=== PATIENT | female | born 1975 | race Caucasian/White ===

== ENCOUNTER 2017-08-27 09:26 | Emergency (ER) | payer MEDICAID ==
[~2017-08-27] VITALS: Ht 154.9 cm; Wt 93.0 kg
[~2017-08-27 09:26] MED LIST: FLEXERIL PO; GLUMETZA500; MACROBID 100 M100 M1 PO; NORCO 5-325 TA1 EACH PO
[2017-08-27 10:27] LABS: ABSOLUTE BASOPHILS 0.1 thou/uL (0.0-0.2); ABSOLUTE EOSINOPHILS 0.1 thou/uL (0.0-0.7); ABSOLUTE LYMPHOCYTES 1.4 thou/uL (0.8-5.3); ABSOLUTE MONOCYTES 0.4 thou/uL (0.0-1.2); BASOPHILS 1.3 %; EOSINOPHILS 1.8 %; HEMATOCRIT 35.8 % (37.0-47.0); HEMOGLOBIN 11.8 gm/dL (12.0-15.0); LYMPHOCYTES 20.3 %; MCH 28.7 pg (26.0-34.0); MCHC 33.1 g/dL (28.0-37.0); MCV 86.8 fL (80.0-100.0); MONOCYTES 5.7 %; MPV 10.1 fl. (7.2-11.1); NUCLEATED RBCS 0 /100WBC; PLATELET COUNT* 214 thou/uL (150-400); POLYS 70.9 %; RBC 4.12 mil/uL (4.20-5.00); RDW-CV 13.5 % (10.5-14.5)
[2017-08-27 10:34] LABS: CALCIUM 8.3 mg/dL (8.5-10.1); CREATININE 0.9 mg/dL (0.6-1.3); POTASSIUM 3.7 mmol/L (3.5-5.1)
[2017-08-27 10:44] LABS: ALBUMIN 3.3 g/dL (3.4-5.0); INFLUENZA A ANTIGEN None Detected (None Detect); INFLUENZA B ANTIGEN None Detected (None Detect); TOTAL BILIRUBIN 0.2 mg/dL (<0.1-1.0)
[2017-08-27 11:10] LABS: URINE BILIRUBIN NEGATIVE (Negative); URINE BLOOD TRACE (Negative); URINE CLARITY CLEAR; URINE COLOR YELLOW; URINE GLUCOSE-RANDOM NEGATIVE (Negative); URINE KETONES NEGATIVE (Negative); URINE LEUKOCYTES-REFLEX NEGATIVE (Negative); URINE NITRITE-REFLEX NEGATIVE (Negative); URINE PROTEIN NEGATIVE (Negative); URINE SPECIFIC GRAVITY 1.025 (1.005-1.030); URINE UROBILINOGEN 0.2 E.U./dl (0.2-1.0)
[2017-08-27] MEDS ORDERED: MEDROLDOSEPACK PO (11:42)
[2017-08-27] MEDS ORDERED: IBUPROFEN 800800 M1 PO (11:42)
[2017-08-27] MEDS ORDERED: PROMETH-CODEIN 65 ML PO (11:42)
[2017-08-27 11:52] VITALS: BP 111/63
== END 2017-08-27 11:53 | disposition home or self-care (01) ==
LOC: M.ERS 09:26
PROVIDERS: Personal Emergency Response Attendant
DX: J40 Bronchitis, not specified as acute or chronic (principal); E11.9 Type 2 diabetes mellitus without complications; Z98.890 Other specified postprocedural states

== ENCOUNTER 2017-10-06 16:47 | Emergency (ER) | payer MEDICAID ==
[~2017-10-06] VITALS: Ht 154.9 cm; Wt 88.9 kg
[~2017-10-06 16:47] MED LIST changes: +IBUPROFEN 800800 M1 PO; +MEDROLDOSEPACK PO; +PROMETH-CODEIN 65 ML PO
[2017-10-06] MEDS ORDERED: HYDROCODON-ACE1 EAC7 PO (17:59)
[2017-10-06 18:11] VITALS: BP 135/72
== END 2017-10-06 18:12 | disposition home or self-care (01) ==
LOC: M.ERS 16:47
DX: S80.12XA Contusion of left lower leg, initial encounter (principal); E11.9 Type 2 diabetes mellitus without complications; Z90.49 Acquired absence of other specified parts of digestive tract; Z98.890 Other specified postprocedural states; W00.0XXA Fall on same level due to ice and snow, initial encounter; Y93.89 Activity, other specified; Y92.89 Other specified places as the place of occurrence of the external cause; Y99.8 Other external cause status

== ENCOUNTER 2018-04-16 23:49 | Emergency (ER) | payer OTHER ==
[~2018-04-16] VITALS: Ht 154.9 cm; Wt 95.3 kg
[~2018-04-16 23:49] MED LIST changes: +HYDROCODON-ACE1 EAC7 PO
[2018-04-17 00:06] LABS: URINE BILIRUBIN NEGATIVE (Negative); URINE BLOOD 3+ (Negative); URINE CLARITY CLEAR; URINE COLOR YELLOW; URINE GLUCOSE-RANDOM NEGATIVE (Negative); URINE KETONES NEGATIVE (Negative); URINE NITRITE-REFLEX NEGATIVE (Negative); URINE PROTEIN TRACE (Negative); URINE UROBILINOGEN 0.2 E.U./dl (0.2-1.0)
[2018-04-17 00:07] LABS: URINE LEUKOCYTES-REFLEX 2+ (Negative)
[2018-04-17 00:09] LABS: BACTERIA-REFLEX >30 Many /HPF (None Seen); CASTS None Seen /LPF (None Seen); CRYSTALS None Seen /LPF (None Seen); MUCUS 0-3 Light strn/LPF (None Seen); SQUAMOUS 0-3 Few /LPF (0-3); URINE RBC >20 Many /HPF (0-2); URINE WBC-REFLEX >25 Many /HPF (0-5); WBC CLUMPS Few (None Seen)
[2018-04-17 00:26] LABS: HEMATOCRIT 35.6 % (37.0-47.0); HEMOGLOBIN 11.6 gm/dL (12.0-15.0); MCH 28.2 pg (26.0-34.0); MCHC 32.7 g/dL (28.0-37.0); MCV 86.3 fL (80.0-100.0); MPV 9.5 fl. (7.2-11.1); NUCLEATED RBCS 0 /100WBC; PLATELET COUNT* 264 thou/uL (150-400); RBC 4.13 mil/uL (4.20-5.00); RDW-CV 13.1 % (10.5-14.5); WBC 7.3 thou/uL (4.0-11.0)
[2018-04-17] MEDS ORDERED: PYRIDIUM200 MG PO (00:27)
[2018-04-17] MEDS ORDERED: ULTRAM 50MG TAB50 MG PO (00:27)
[2018-04-17] MEDS ORDERED: CIPRO500 M1 PO (00:27)
[2018-04-17 00:35] LABS: ABSOLUTE NEUTROPHILS 4.2 thou/uL (1.6-8.1); POLYS 57.9 %
[2018-04-17 00:36] LABS: ABSOLUTE EOSINOPHILS 0.2 thou/uL (0.0-0.7); ABSOLUTE LYMPHOCYTES 2.4 thou/uL (0.8-5.3); ABSOLUTE MONOCYTES 0.5 thou/uL (0.0-1.2); BASOPHILS 0.3 %; EOSINOPHILS 2.1 %; LYMPHOCYTES 32.2 %; MONOCYTES 7.5 %
[2018-04-17 00:52] VITALS: BP 123/70
== END 2018-04-17 00:54 | disposition home or self-care (01) ==
LOC: M.ERS 23:49
PROVIDERS: Nurse Practitioner
DX: N39.0 Urinary tract infection, site not specified (principal); E11.9 Type 2 diabetes mellitus without complications; F17.210 Nicotine dependence, cigarettes, uncomplicated; Z90.49 Acquired absence of other specified parts of digestive tract

== ENCOUNTER 2018-05-31 14:59 | Emergency (ER) | payer BC ==
[~2018-05-31] VITALS: Ht 157.5 cm; Wt 95.3 kg
[~2018-05-31 14:59] MED LIST changes: +CIPRO500 M1 PO; +PYRIDIUM200 MG PO; +ULTRAM 50MG TAB50 MG PO
[2018-05-31] MEDS ORDERED: FLEXERIL PO (16:15)
[2018-05-31] MEDS ORDERED: MEDROLDOSEPACK PO (16:15)
[2018-05-31 16:28] VITALS: BP 122/70
--- NOTE | 2018-06-01 11:55 | EKG ---
[place] [address] ELECTROCARDIOGRAM REPORT Name: JUAN FENG Room: [facility]#: [id number] Admission: 05/31/18 Attend Phys: Discharge: 05/31/18 Date of : 79 Report #: [id number] THIS REPORT FOR: //name// [facility] ED Test Date: 2018-05-31 Test Time: 16:07:18 Pat Name: JUAN FENG Department: Room: Gender: F [employer] Estimator: Peggy RAJAN : 1975 Requested By: Elida Cantor Order Number: [id number] MD: Walter Vaca Measurements Intervals [place] Rate: 68 P: 37 NH: 164 QRS: 17 QRSD: 98 T: 8 QT: 398 QTc: 424 Interpretive Statements Sinus rhythm Probable left atrial enlargement Compared to ECG 01/05/2011 22:29:46 Poor R-wave progression no longer present Electronically Signed On 06-01-2018 11:55:15 CDT by Walter Vaca [email or web address] <ELECTRONICALLY SIGNED> By: Walter Vaca MD, [facility] 06/01/18 1155 1607 160 Walter Vaca MD, [facility] /EPI
== END 2018-05-31 16:29 | disposition home or self-care (01) ==
LOC: M.ERS 14:59
DX: M54.12 Radiculopathy, cervical region (principal); M25.512 Pain in left shoulder; E11.9 Type 2 diabetes mellitus without complications; F17.210 Nicotine dependence, cigarettes, uncomplicated; Z90.49 Acquired absence of other specified parts of digestive tract; Z98.890 Other specified postprocedural states

== ENCOUNTER 2018-09-23 10:05 | Emergency (ER) | payer BC ==
[~2018-09-23] VITALS: Ht 162.6 cm; Wt 99.8 kg
[2018-09-23 10:41] LABS: URINE BILIRUBIN NEGATIVE (Negative); URINE BLOOD 3+ (Negative); URINE CLARITY CLEAR; URINE COLOR YELLOW; URINE GLUCOSE-RANDOM NEGATIVE (Negative); URINE KETONES NEGATIVE (Negative); URINE LEUKOCYTES-REFLEX NEGATIVE (Negative); URINE NITRITE-REFLEX NEGATIVE (Negative); URINE PROTEIN 2+ (Negative); URINE SPECIFIC GRAVITY >= 1.030 (1.005-1.030); URINE UROBILINOGEN 0.2 E.U./dl (0.2-1.0)
[2018-09-23 10:45] LABS: BACTERIA-REFLEX 1-9 Few /HPF (None Seen); CASTS None Seen /LPF (None Seen); CRYSTALS None Seen /LPF (None Seen); MUCUS None Seen strn/LPF (None Seen); SQUAMOUS 0-3 Few /LPF (0-3); URINE RBC >20 Many /HPF (0-2); URINE WBC-REFLEX 0-5 Rare /HPF (0-5)
[2018-09-23 10:54] LABS: INFLUENZA A ANTIGEN None Detected (None Detect); INFLUENZA B ANTIGEN None Detected (None Detect)
[2018-09-23 11:07] LABS: ABSOLUTE LYMPHOCYTES 1.5 thou/uL (0.8-5.3); NUCLEATED RBCS 0 /100WBC; PLATELET COUNT* 152 thou/uL (150-400)
[2018-09-23 11:09] LABS: ABSOLUTE EOSINOPHILS 0.1 thou/uL (0.0-0.7); ABSOLUTE MONOCYTES 0.5 thou/uL (0.0-1.2); ABSOLUTE NEUTROPHILS 5.3 thou/uL (1.6-8.1); BASOPHILS 0.6 %; EOSINOPHILS 0.8 %; HEMATOCRIT 35.7 % (37.0-47.0); HEMOGLOBIN 11.8 gm/dL (12.0-15.0); MCH 28.5 pg (26.0-34.0); MCHC 33.1 g/dL (28.0-37.0); MCV 86.2 fL (80.0-100.0); MONOCYTES 7.3 %; MPV 10.1 fl. (7.2-11.1); POLYS 71.3 %; RBC 4.14 mil/uL (4.20-5.00); WBC 7.4 thou/uL (4.0-11.0)
[2018-09-23 11:12] LABS: CALCIUM 8.7 mg/dL (8.5-10.1); CREATININE 0.8 mg/dL (0.6-1.3)
[2018-09-23 11:16] LABS: ALBUMIN 3.4 g/dL (3.4-5.0); TOTAL BILIRUBIN 0.3 mg/dL (<0.1-1.0); TOTAL PROTEIN 7.2 g/dL (6.4-8.2)
[2018-09-23] MEDS ORDERED: ZOFRAN4 MG PO (11:55)
[2018-09-23 12:07] VITALS: BP 105/61
== END 2018-09-23 12:08 | disposition home or self-care (01) ==
LOC: M.ERS 10:05
PROVIDERS: Nurse Practitioner Family
DX: B34.9 Viral infection, unspecified (principal); R11.2 Nausea with vomiting, unspecified; F17.210 Nicotine dependence, cigarettes, uncomplicated; E11.9 Type 2 diabetes mellitus without complications; Z98.890 Other specified postprocedural states; Z90.49 Acquired absence of other specified parts of digestive tract

== ENCOUNTER 2018-10-25 11:19 | Emergency (ER) | payer BC ==
[~2018-10-25] VITALS: Ht 157.5 cm; Wt 101.2 kg
[~2018-10-25 11:19] MED LIST changes: +ZOFRAN4 MG PO
[2018-10-25 12:47] LABS: INFLUENZA A ANTIGEN None Detected (None Detect); INFLUENZA B ANTIGEN None Detected (None Detect)
[2018-10-25] MEDS ORDERED: PROMETH-CODEIN 65 ML PO (13:58)
[2018-10-25] MEDS ORDERED: ZPAK PO (13:58)
[2018-10-25] MEDS ORDERED: MEDROLDOSEPACK PO (13:58)
[2018-10-25] MEDS ORDERED: VENTOLIN HFA 1818 GM INH (13:58)
[2018-10-25 14:14] VITALS: BP 104/80
== END 2018-10-25 14:15 | disposition home or self-care (01) ==
LOC: M.ERS 11:19
PROVIDERS: Nurse Practitioner Family
DX: J20.9 Acute bronchitis, unspecified (principal); R19.7 Diarrhea, unspecified; E11.9 Type 2 diabetes mellitus without complications; Z90.49 Acquired absence of other specified parts of digestive tract; Z98.890 Other specified postprocedural states; F17.210 Nicotine dependence, cigarettes, uncomplicated

== ENCOUNTER 2018-11-12 19:39 | Emergency (ER) | payer BC ==
[~2018-11-12] VITALS: Ht 154.9 cm; Wt 86.2 kg
[~2018-11-12 19:39] MED LIST changes: +VENTOLIN HFA 1818 GM INH; +ZPAK PO
[2018-11-12] MEDS ORDERED: NORCO 5-325 TA1 EACH PO (21:09)
[2018-11-12 21:21] VITALS: BP 128/68
== END 2018-11-12 21:22 | disposition home or self-care (01) ==
LOC: M.ERS 19:39
DX: M25.562 Pain in left knee (principal); E11.9 Type 2 diabetes mellitus without complications; Z90.49 Acquired absence of other specified parts of digestive tract; Z98.890 Other specified postprocedural states; F17.210 Nicotine dependence, cigarettes, uncomplicated